=== PATIENT | male | born 1975 | race Caucasian/White ===

== ENCOUNTER 2025-09-12 09:12 | Outpatient (AMB) | payer OTHER, SELFPAY ==
[2025-09-12 09:29] VITALS: BMI 34.9
--- NOTE | 2025-09-12 09:29 | A.PHYSOV ---
Vital Signs 09/12/25 09:29 Height 5 ft 7 in Weight 223 lb BMI 34.9 Intake Visit Reasons: NPV Akilah ref- RLE pain Intake Note: Patient is a 50 year old male here for new patient visit. Patient is being referred for right lower extremity pain. Emr Implementation Specialist Required: No Allergies erythromycin base Allergy (Unknown, Verified 09/12/25 09:31) Unknown Penicillins Allergy (Unknown, Verified 09/12/25 09:31) Unknown semaglutide Allergy (Unknown, Verified 09/12/25 09:31) Unknown HPI Comments Details: History of Present Illness The patient is a 50 year old individual presenting for consultation with hip and lower back pain. The onset of symptoms was in May, when the patient woke up with sharp pain in the right hip and back area. At one point, the patient experienced an episode of getting locked up on the stairs. An initial evaluation with another physician included an x-ray, which reportedly showed a small bone spur and bursa. The patient was prescribed medication, later identified as diclofenac, and referred to physical therapy. Physical therapy reportedly exacerbated the pain, and the therapist noted that pressure over the area caused sharp pain and a tingling sensation down the leg to the knee, leading to the discontinuation of therapy. Patient has pain level today of 7/10. He has failed conservative treatment. The patient's pain is located in the lower back and radiates to the hip and sometimes down the leg, described as a burning, tingling nerve pain. The patient reports a history of a cadaver brace in the neck but has undergone an MRI previously without any issues. I reviewed the referring provider's no prior to consultation. Pain Description - Onset: Started in May upon waking. - Location: Pain located in the right hip and lower back area. - Radiation: Pain radiates to the hip and sometimes down the leg to the knee. - Quality: Described as sharp, with associated burning and tingling. - Severity: Rated as a 6 or 7 out of 10 at present. - Exacerbating factors: Worsened by physical therapy, prolonged sitting or standing. - Functional limitations: Interferes with activities such as climbing stairs. [facility] Medical History (Updated 09/12/25 @ 09:44 by KYRA Rowland) Encounter for vasectomy Surgical History History of neck surgery H/O hernia repair History of cholecystectomy Social History Alcohol intake: current Alcohol intake frequency: does not drink Patient Tobacco Use Status: Current someday Tobacco user Review of Systems Narrative Review of Systems - Musculoskeletal: Reports pain in the lower back and right hip. - Neurological: Reports episodes of burning, tingling pain that radiates down the leg to the knee. - Psychiatric: Reports some anxiety related to enclosed spaces but feels able to tolerate an MRI without medication. Physical Exam Exam Exam: Physical Exam Lumbar Spine: Examination of his lumbar spine, there is no visible swelling or deformity. He is tender to the right lower lumbar facets. He is otherwise nontender. Full range of motion of the lumbar spine. He does have an increase in pain with facet loading. Special Tests: Lhermittes sign was negative Heel Toe walk is normal Left straight leg raise: Negative Right straight leg raise: Positive right Special tests Bonnie test is negative Ganslen's test is negative SI Joint compression test negative Jayro test negative Piriformis stretch is negative Lower Extremities: Full range of motion bilateral lower extremities. No calf pain or edema. Neuro: Sensation: Intact to lower extremities bilaterally Strength L2 (Psoas): 5/5 on the left and 5/5 on the right. L3 (Quads): 5/5 on the left and 5/5 on the right. L4 (Ant tibialis): 5/5 on the left and 5/5 on the right. L5 (EHL) 5/5 on the left and 5/5 on the right. S1 (Gastroc): 5/5 on the left and 5/5 on the right. DTR L4: (Patellar) Left 2 Right 2 S1: (Achilles) Left 2 Right 2 Babinski Downgoing No pathologic clonus. No involuntary movement. Vital Signs: BMI result Body Mass Index 34.9 Assessment & Plan Assessment & Plan (1) Lumbar radiculopathy: Code(s): M54.16 - Radiculopathy, lumbar region Category: Medical (2) Lumbar spondylosis: Code(s): M47.816 - Spondylosis without myelopathy or radiculopathy, lumbar region Category: Medical Plan Pain Management - Analgesia: The patient is currently taking diclofenac for pain. - Current Pain Levels: The patient rates current pain as a 6 or 7 out of 10. - Activities of Daily Living: Pain interferes with sitting, standing, and walking up stairs. Plan Patient was informed and verbally consented to the use of an ambient scribe for clinic note documentation during this visit. 1. Low Back Pain With Radiculopathy The patient's presentation, including lower back pain with radiation, burning, tingling, pain on back extension, and lack of pain reproduction with hip maneuvers, is highly suggestive of a lumbar spine etiology rather than a primary hip issue. To further evaluate the underlying cause, an MRI of the lumbar spine will be ordered. Patient has failed conservative treatment by completing physical therapy. The patient will continue using diclofenac for pain management. A follow-up appointment will be scheduled after the MRI to review the results and determine a definitive treatment plan. 2. Hip Pain Although the patient presents with hip pain, the physical exam does not reproduce the pain with hip-specific movements, suggesting it is likely referred pain from the lumbar spine. Prior imaging showed a bone spur and bursa, but these are considered less likely to be the primary pain generators given the clinical picture. Further management of the hip pain will be guided by the findings of the lumbar spine MRI. We discussed the benefits of proper nutrition and exercise to maintain a healthy body weight to improve longevity and function. We also discussed the benefits of proper lifting techniques, core strengthening and proper posture. Thank you for allowing me to participate in the care of your patient. Orders: Orders MR lumbar spine wo con Today M51.16 - Intervertebral disc disorders with radiculopathy, lumbar region Coding Level of Care Code Tele New Pt Level 4 (68210) Diagnoses Lumbar radiculopathy M54.16 Lumbar spondylosis M47.816
== END 2025-09-12 09:45 | disposition home or self-care (01) ==
LOC: HO.HPHYS 09:13
PROVIDERS: PCP Physician Assistant; Visit Provider Physician Assistant
DX: M54.16 Radiculopathy, lumbar region (principal); M47.816 Spondylosis without myelopathy or radiculopathy, lumbar region
CPT/HCPCS: 99204